=== PATIENT | male | born 1940 | race Caucasian/White ===

== ENCOUNTER 2016-04-14 19:21 | Observation (INO) | payer OTHER ==
[~2016-04-14] VITALS: Ht 175.3 cm; Wt 77.5 kg
[~2016-04-14 19:21] MED LIST: Ambien PO; CELEBREX200 MG PO; CELEXA40 MG PO; Calan SR,Covera HS,I PO; ENDOCET 5-3251 EACH PO; Ecotrin PO; Feosol PO; Glucophage PO; Hydrodiuril,Oretic,E PO; PriLOSEC PO; SENOKOT S,PE1 TABLET PO; VASOTEC10 M1 PO; Zocor PO
[2016-04-14 20:44] LABS: EOSINOPHIL (%) 0.2 % (0-5); HEMATOCRIT 38.1 % (38.0-50.0); LYMPHOCYTE COUNT 0.4 K/uL (1.0-2.8); MCH 27.5 PG (29.0-34.0); MCHC 33.1 G/DL (30.0-36.0); MEAN PLAT.VOLUME 10.4 uM^3 (9.0-12.4); MONOCYTE (%) 10.6 % (3-12); MONOCYTE COUNT 0.5 K/uL (0-0.8); NEUTROPHIL (%) 79.6 % (45-76); NEUTROPHIL COUNT 3.4 K/uL (1.8-6.4); PLATELET COUNT 146 K/uL (156-360); RBC DIS.WIDTH-CV 13.8 % (11.8-14.6); RBC DIS.WIDTH-SD 40.6 % (39-53); RED BLOOD COUNT 4.59 M/uL (4.00-5.50); WHITE BLOOD COUNT 4.3 K/uL (4.1-10.2)
[2016-04-14 20:44] LABS: CHLORIDE 104 mEq/L (99-109); POTASSIUM 3.5 mEq/L (3.7-5.4); SODIUM 136 mEq/L (136-147)
[2016-04-14 20:47] LABS: GLUCOSE 169 mg/dL (70-99)
[2016-04-14 20:48] LABS: ANION GAP 7 MEQ/L (2-14)
[2016-04-14 20:49] LABS: TOTAL BILIRUBIN 0.5 mg/dL (0.0-1.0)
[2016-04-14 20:50] LABS: ALKALINE PHOSPHATASE 167 IU/L (3-129); GFR ESTIMATE (CALCULATED) > 59 mL/min/
[2016-04-14 20:51] LABS: UREA NITROGEN (BUN) 15 mg/dL (9-23)
[2016-04-14 20:57] LABS: TROP-I INTERPRETATION NEGATIVE; TROPONIN-I 0.02 ng/mL (0.0-0.30)
[2016-04-14 22:01] LABS: ADD MIUA? YES; BILIRUBIN NEGATIVE; BLOOD SMALL; COLOR YELLOW ((YELLOW)); GLUCOSE (STRIP) NEGATIVE; KETONES NEGATIVE; LEUKOCYTES NEGATIVE; NITRITE NEGATIVE; PROTEIN (STRIP) TRACE; SPECIFIC GRAVITY 1.013 (1.000-1.030)
[2016-04-14] MEDS ORDERED: CALAN SR,COVER240 MG PO (22:34)
[2016-04-14] MEDS ORDERED: ATORVASTATIN CA80 MG PO (22:34)
[2016-04-14] MEDS ORDERED: OMEPRAZOLE20 MG PO (22:35)
[2016-04-14] MEDS ORDERED: IRON325 M1 PO (22:35)
[2016-04-14] MEDS ORDERED: HYDROCHLOROTHIA25 MG PO (22:36)
[2016-04-14] MEDS ORDERED: LO-DOSE ASPIRIN81 M2 PO (22:36)
[2016-04-14] MEDS ORDERED: ROBITUSSIN DM118 ML PO (22:36)
[2016-04-14] MEDS ORDERED: TAMSULOSIN HCL0.4 MG PO (22:36)
[2016-04-14] MEDS ORDERED: METOPROLOL SUC100 MG PO (22:36)
[2016-04-14 23:01] LABS: BACTERIA 1+ /HPF; CASTS NONE SEEN /LPF; CRYSTALS NONE SEEN; EPITHELIAL CELLS RARE /HPF; MUCUS NONE SEEN /LPF; RED BLOOD CELLS 0-5 /HPF (0-5); UCUL ADDED? NO; WHITE BLOOD CELLS 0-5 /HPF (0-5)
[2016-04-14 23:29] LABS: INFLUENZA A VIRAL ANTIGEN NEGATIVE; INFLUENZA B VIRAL ANTIGEN NEGATIVE
[2016-04-15 02:12] VITALS: BP 155/74
[2016-04-15 02:57] LABS: HDL CHOLESTEROL 34 MG/DL (Desirable>=40); LDL CHOLESTEROL 43 mg/dL (Desirable<100); NON-HDL CHOLESTEROL 61 mg/dL (Desirable<160); TOTAL CHOLESTEROL 95 mg/dL (Desirable<200); TRIGLYCERIDES 90 MG/DL (Normal: <150)
[2016-04-15 07:13] VITALS: BP 122/65
[2016-04-15 07:28] LABS: Estimated Average Glucose 151 mg/dL (70-123); HEMOGLOBIN A1c (GLYCOHEMOGLOB) 6.9 % HGB (Below 5.7)
[2016-04-15 10:20] LABS: ALKALINE PHOSPHATASE 152 IU/L (3-129); DIRECT BILIRUBIN 0.2 mg/dL (0.0-0.3); TOTAL BILIRUBIN 0.5 MG/DL (0.0-1.0)
[2016-04-15 11:19] VITALS: BP 129/71
[2016-04-15 15:13] VITALS: BP 125/51
[2016-04-15 15:33] LABS: INTER. NORMALIZED RATIO 1.1; PROTHROMBIN TIME 11.6 (9.2-11.2)
[2016-04-15] MEDS ORDERED: MELOXICAM7.5 MG PO (16:24)
[2016-04-15] MEDS ORDERED: METFORMIN HCL1000 MG PO (16:24)
[2016-04-15] MEDS ORDERED: VENLAFAXINE HCL75 M3 PO (16:25)
[2016-04-15 20:00] VITALS: BP 106/54
[2016-04-16 00:02] VITALS: BP 130/63
[2016-04-16 03:37] VITALS: BP 138/65
[2016-04-16 07:05] LABS: HEMATOCRIT 36.9 % (38.0-50.0); MCH 27.3 PG (29.0-34.0); MCHC 32.8 G/DL (30.0-36.0); MCV 83.1 FL (86-99); MEAN PLAT.VOLUME 10.8 uM^3 (9.0-12.4); PLATELET COUNT 133 K/uL (156-360); RBC DIS.WIDTH-CV 14.2 % (11.8-14.6); RBC DIS.WIDTH-SD 42.8 % (39-53); RED BLOOD COUNT 4.44 M/uL (4.00-5.50); WHITE BLOOD COUNT 4.1 K/uL (4.1-10.2)
[2016-04-16 07:08] LABS: LYMPHOCYTE COUNT 0.8 K/uL (1.0-2.8); MONOCYTE (%) 23.2 % (3-12); MONOCYTE COUNT 0.9 K/uL (0-0.8); NEUTROPHIL (%) 56.6 % (45-76); NEUTROPHIL COUNT 2.3 K/uL (1.8-6.4)
[2016-04-16 07:34] LABS: ALKALINE PHOSPHATASE 134 IU/L (3-129); ANION GAP 8 MEQ/L (2-14); CHLORIDE 101 MEQ/L (99-109); GFR ESTIMATE (CALCULATED) > 59 mL/min/; POTASSIUM 3.8 MEQ/L (3.7-5.4); SAMPLE HEMOLYSIS CHECK 0; SAMPLE ICTERIC CHECK 0; SAMPLE LIPEMIA CHECK 0; SODIUM 137 MEQ/L (136-147); TOTAL BILIRUBIN 0.5 MG/DL (0.0-1.0); UREA NITROGEN (BUN) 11 mg/dL (9-23)
[2016-04-16 07:35] LABS: GLUCOSE 106 mg/dL (70-99)
[2016-04-16 07:52] VITALS: BP 136/67
[2016-04-16 15:44] VITALS: BP 138/68
[2016-04-17] VITALS: BP 143/73
[2016-04-17 07:13] VITALS: BP 139/76
[2016-04-17] MEDS ORDERED: GLIPIZIDE5 MG PO (13:02)
== END 2016-04-17 14:40 | disposition home or self-care (01) ==
LOC: EME 19:21 → 5SOUTH 23:58 → EDOF 23:58 → 5SOUTH 04-15 01:46
PROVIDERS: Emergency Medicine; Hospitalist
DX: R42 Dizziness and giddiness (principal); R26.9 Unspecified abnormalities of gait and mobility; R41.0 Disorientation, unspecified; R50.9 Fever, unspecified; E11.9 Type 2 diabetes mellitus without complications; I10 Essential (primary) hypertension; Z91.120 Patient's intentional underdosing of medication regimen due to financial hardship; T38.3X6A Underdosing of insulin and oral hypoglycemic [antidiabetic] drugs, initial encounter; I25.10 Atherosclerotic heart disease of native coronary artery without angina pectoris; Z95.1 Presence of aortocoronary bypass graft; D50.9 Iron deficiency anemia, unspecified; K21.9 Gastro-esophageal reflux disease without esophagitis; R63.4 Abnormal weight loss
CPT/HCPCS: 70450; 70551; 71010; 80053; 80061; 80076; 81003; 83036; 83605; 84484; 85025; 85610; 85730; 87040; 87502; 92523 GN; 93306; 93880; 99281; 99285; G0378; G8987 GO CH; G8988 GO CH; G8989 GO CH; G9168 GN CH; G9169 GN CH; G9170 GN CH; J0696; J1644; J7050

== ENCOUNTER 2017-01-28 13:45 | Inpatient (IN) | payer OTHER ==
[~2017-01-28] VITALS: Ht 175.3 cm; Wt 75.8 kg
[~2017-01-28 13:45] MED LIST changes: +ATORVASTATIN CA80 MG PO; +CALAN SR,COVER240 MG PO; +GLIPIZIDE5 MG PO; +HYDROCHLOROTHIA25 MG PO; +IRON325 M1 PO; +LO-DOSE ASPIRIN81 M2 PO; +MELOXICAM7.5 MG PO; +METFORMIN HCL1000 MG PO; +METOPROLOL SUC100 MG PO; +OMEPRAZOLE20 MG PO; +ROBITUSSIN DM118 ML PO; +TAMSULOSIN HCL0.4 MG PO; +VENLAFAXINE HCL75 M3 PO
[2017-01-28 14:18] LABS: POINT-OF-CARE METER ID UU13113702
[2017-01-28 14:42] LABS: EOSINOPHIL (%) 0.9 % (0-5); EOSINOPHIL COUNT 0.1 K/uL (0-0.3); HEMATOCRIT 42.3 % (38.0-50.0); IMMATURE GRANULOCYTE (%) 0.2 % (0.0-0.7); INSTRUMENT ABS NEUTROPHIL CT 9.1 K/uL; LYMPHOCYTE COUNT 0.5 K/uL (1.0-2.8); MCH 27.7 PG (29.0-34.0); MCHC 31.7 G/DL (30.0-36.0); MCV 87.6 FL (86-99); MONOCYTE (%) 8.5 % (3-12); MONOCYTE COUNT 0.9 K/uL (0-0.8); NEUTROPHIL (%) 84.9 % (45-76); NEUTROPHIL COUNT 9.1 K/uL (1.8-6.4); RBC DIS.WIDTH-CV 12.6 % (11.8-14.6); RBC DIS.WIDTH-SD 40.3 % (39-53); RED BLOOD COUNT 4.83 M/uL (4.00-5.50); WHITE BLOOD COUNT 10.7 K/uL (4.1-10.2)
[2017-01-28 14:45] LABS: CHLORIDE 106 mEq/L (99-109); POTASSIUM 4.2 mEq/L (3.7-5.4); SODIUM 139 mEq/L (136-147)
[2017-01-28 14:47] LABS: GLUCOSE 139 mg/dL (70-99)
[2017-01-28 14:48] LABS: ANION GAP 9 MEQ/L (2-14)
[2017-01-28 14:49] LABS: TOTAL BILIRUBIN 0.7 mg/dL (0.0-1.0)
[2017-01-28 14:51] LABS: ALKALINE PHOSPHATASE 195 IU/L (3-129); GFR ESTIMATE (CALCULATED) > 59 mL/min/
[2017-01-28 14:52] LABS: UREA NITROGEN (BUN) 15 mg/dL (9-23)
[2017-01-28 14:58] LABS: TROP-I INTERPRETATION NEGATIVE; TROPONIN-I < 0.01 ng/mL (0.0-0.30)
[2017-01-28 15:50] LABS: PLAT.SUFFICIENCY ADEQUATE; PLATELET CLUMPS PRESENT - PLATELET COUNT APPEARS ADQ.; PLATELET COUNT UNABLE TO REPORT K/uL (156-360)
[2017-01-28 16:27] LABS: SERUM ETHYL ALCOHOL < 10 mg/dL
[2017-01-28 17:06] LABS: ADD MIUA? NO; BILIRUBIN NEGATIVE; BLOOD NEGATIVE; COLOR YELLOW ((YELLOW)); GLUCOSE (STRIP) NEGATIVE; KETONES 5; LEUKOCYTES NEGATIVE; NITRITE NEGATIVE; PROTEIN (STRIP) NEGATIVE; SPECIFIC GRAVITY 1.019 (1.000-1.030); UCUL ADDED? NO
[2017-01-28 20:40] VITALS: BP 153/72
[2017-01-28 23:12] LABS: POINT-OF-CARE METER ID UU14174225
[2017-01-28 23:42] VITALS: BP 136/64
[2017-01-29 03:22] VITALS: BP 130/66
[2017-01-29 07:56] VITALS: BP 114/74
[2017-01-29 09:12] LABS: HEMATOCRIT 37.4 % (38.0-50.0); MCH 27.6 PG (29.0-34.0); MCHC 31.6 G/DL (30.0-36.0); MCV 87.4 FL (86-99); MEAN PLAT.VOLUME 11.1 uM^3 (9.0-12.4); PLATELET COUNT 174 K/uL (156-360); RBC DIS.WIDTH-CV 12.7 % (11.8-14.6); RBC DIS.WIDTH-SD 40.3 % (39-53); RED BLOOD COUNT 4.28 M/uL (4.00-5.50); WHITE BLOOD COUNT 8.9 K/uL (4.1-10.2)
[2017-01-29 09:35] LABS: ALKALINE PHOSPHATASE 142 IU/L (3-129); ANION GAP 9 MEQ/L (2-14); CHLORIDE 105 MEQ/L (99-109); GFR ESTIMATE (CALCULATED) > 59 mL/min/; GLUCOSE 118 mg/dL (70-99); POTASSIUM 3.6 MEQ/L (3.7-5.4); SAMPLE HEMOLYSIS CHECK 0; SAMPLE ICTERIC CHECK 0; SAMPLE LIPEMIA CHECK 0; SODIUM 142 MEQ/L (136-147); TOTAL BILIRUBIN 0.7 MG/DL (0.0-1.0); UREA NITROGEN (BUN) 14 mg/dL (9-23)
[2017-01-29 10:27] LABS: HDL CHOLESTEROL 34 MG/DL (Desirable>=40); LDL CHOLESTEROL 43 mg/dL (Desirable<100); NON-HDL CHOLESTEROL 62 mg/dL (Desirable<160); TOTAL CHOLESTEROL 96 mg/dL (Desirable<200); TRIGLYCERIDES 94 MG/DL (Normal: <150)
[2017-01-29 11:07] LABS: Estimated Average Glucose 157 mg/dL (70-123); HEMOGLOBIN A1c (GLYCOHEMOGLOB) 7.1 % HGB (Below 5.7)
[2017-01-29 12:15] VITALS: BP 117/56
[2017-01-29 14:41] LABS: POINT-OF-CARE METER ID UU13113717
[2017-01-29 16:31] VITALS: BP 140/66
[2017-01-29 19:27] VITALS: BP 140/63
[2017-01-29 23:04] LABS: POINT-OF-CARE METER ID UU13113717
[2017-01-29 23:43] VITALS: BP 144/65
[2017-01-30 03:44] VITALS: BP 140/66
[2017-01-30 06:43] LABS: ANION GAP 10 MEQ/L (2-14); CHLORIDE 107 MEQ/L (99-109); GFR ESTIMATE (CALCULATED) > 59 mL/min/; GLUCOSE 102 mg/dL (70-99); POTASSIUM 4.2 MEQ/L (3.7-5.4); SAMPLE HEMOLYSIS CHECK 0; SAMPLE ICTERIC CHECK 0; SAMPLE LIPEMIA CHECK 0; SODIUM 143 MEQ/L (136-147); UREA NITROGEN (BUN) 15 mg/dL (9-23)
[2017-01-30 07:51] VITALS: BP 151/71
[2017-01-30 08:47] LABS: ALKALINE PHOSPHATASE 141 IU/L (3-129); DIRECT BILIRUBIN 0.2 mg/dL (0.0-0.3); TOTAL BILIRUBIN 0.7 MG/DL (0.0-1.0)
[2017-01-30] MEDS ORDERED: JANUVIA25 M1 PO (10:11)
[2017-01-30] MEDS ORDERED: JANUVIA25 MG PO (11:31)
[2017-01-30 11:41] LABS: HBSG INDEX 0.19; HPCA INDEX 0.12
[2017-01-30 11:42] LABS: ANTI-HEPATITIS A VIRUS (IGM) Nonreactive; HAV INDEX 0.13
[2017-01-30 11:43] LABS: ANTI-HEPATITIS B CORE (IGM) Nonreactive; HBC IgM INDEX 0.06
[2017-01-30 12:01] VITALS: BP 158/73
== END 2017-01-30 13:41 | disposition home or self-care (01) | DRG 69 ==
LOC: EME 13:45 → EDOF 19:35 → ENRESERV 19:36 → 5SOUTH 20:34
PROVIDERS: Emergency Medicine; Hospitalist; Internal Medicine
DX: G45.9 Transient cerebral ischemic attack, unspecified (principal); R26.9 Unspecified abnormalities of gait and mobility; R47.81 Slurred speech; R13.10 Dysphagia, unspecified; H53.8 Other visual disturbances; I67.2 Cerebral atherosclerosis; J02.9 Acute pharyngitis, unspecified; R05 Cough; R74.0 Nonspecific elevation of levels of transaminase and lactic acid dehydrogenase [LDH]; D50.9 Iron deficiency anemia, unspecified; E11.9 Type 2 diabetes mellitus without complications; I10 Essential (primary) hypertension; I25.10 Atherosclerotic heart disease of native coronary artery without angina pectoris; K21.9 Gastro-esophageal reflux disease without esophagitis; G43.909 Migraine, unspecified, not intractable, without status migrainosus; E78.5 Hyperlipidemia, unspecified; R63.4 Abnormal weight loss; F31.9 Bipolar disorder, unspecified; Z79.82 Long term (current) use of aspirin; Z79.84 Long term (current) use of oral hypoglycemic drugs; Z80.1 Family history of malignant neoplasm of trachea, bronchus and lung; Z80.42 Family history of malignant neoplasm of prostate; Z82.49 Family history of ischemic heart disease and other diseases of the circulatory system; Z83.3 Family history of diabetes mellitus; Z86.73 Personal history of transient ischemic attack (TIA), and cerebral infarction without residual deficits; Z87.891 Personal history of nicotine dependence; Z95.1 Presence of aortocoronary bypass graft
CPT/HCPCS: 70450; 70496; 70498; 70551; 71020; 76705; 80048; 80053; 80061; 80074; 80076; 81003; 82140; 82948; 83036; 83605; 84484; 85025; 85027; 85049; 93005; 99281; 99285; G0480; J1650; J1815; J7030